=== PATIENT | male | born 1985 | race African-American/Black ===

== ENCOUNTER 2019-09-16 11:37 | Emergency (ER) | payer MEDICAID ==
[~2019-09-16] VITALS: Ht 175.3 cm; Wt 86.7 kg
[2019-09-16 11:46] VITALS: BP 124/66
[2019-09-16 12:45] LABS: APPEARANCE,URINE HAZY (CLEAR); BILIRUBIN,URINE NEGATIVE (NEGATIVE); BLOOD, URINE NEGATIVE (NEGATIVE); COLOR,URINE YELLOW (YELLOW); LEUKOCYTE ESTERASE ,URINE 3+ (NEGATIVE); NITRITE, URINE NEGATIVE (NEGATIVE); UGLUCOSE NEGATIVE (NEGATIVE)
[2019-09-16 12:57] LABS: WBC,URINE 20-60 /HPF (0-5)
[2019-09-16 12:58] LABS: RBC,URINE 0-5 /HPF (0-5)
--- NOTE | 2019-09-16 13:04 | NUR ---
Patient ambulated to bed 3. RN evaluating patient at bedside.
--- NOTE | 2019-09-16 13:12 | NUR ---
ADMITS TO UNPROTECTED COITUS <1 WK; C/O DYSURIA WITH BURNING PENILE PAIN
[2019-09-16] MEDS ORDERED: AZITHROMYCIN 250 MG TAB PO ONE (13:20)
[2019-09-16] MEDS ORDERED: cefTRIAXone 1,000 MG in LIDOCAINE MPF 1% 2.1 ML IM ONE (13:20)
[2019-09-16] MEDS ORDERED: cefTRIAXone 1,000 MG VIAL ONE (13:30)
[2019-09-16] MEDS ORDERED: LIDOCAINE MPF 1% 5 ML ONE (13:30)
[2019-09-16 13:49] VITALS: BP 124/66
--- NOTE | 2019-09-16 13:49 | NUR ---
Patient discharged with v/s stable. Written and verbal after care instructions given and explained. Patient verbalized understanding. Ambulatory with steady gait. All questions addressed prior to discharge. Advised to follow up with PMD.
--- NOTE | 2019-09-18 18:10 | NUR ---
[facility]MG 1 TAB PO BID #[phone] NO REFILL ----
[2019-09-19 06:25] LABS: CHLAMYDIA TRACHOMATIS AMP DNA Negative (Negative)
--- NOTE | 2019-09-19 15:52 | NUR ---
LATE ENTRY----RECEVIED A POS GONORRHEA RESULT. NO FURTHER TREATMENT REQUIRED PER DR MAURER.
== END 2019-09-16 13:49 | disposition home or self-care (01) ==
LOC: MED 11:37
DX: R30.0 Dysuria (principal); R36.9 Urethral discharge, unspecified; Z11.3 Encounter for screening for infections with a predominantly sexual mode of transmission
CPT/HCPCS: 36415; 81001; 87086; 87186; 96372; 99283; J0696; J2001; 87491